=== PATIENT | female | born 1985 | race Caucasian/White ===

== ENCOUNTER 2017-06-15 18:44 | Emergency (ER) | payer MEDICAID ==
[~2017-06-15] VITALS: Ht 163.8 cm; Wt 89.4 kg
[~2017-06-15 18:44] MED LIST: ACET500C5 PO; ADV50050 INH; ALBU2.5V3 NEB; ALBU8.5H3 INH; DOXY100T20 PO; GUAI118L94 PO; GUAI473L22 PO; IBUP400T22 PO; IPRA12.93 INHALATION; Ipratropium 0.02% (Neb) HHN; TIOT18CA INH
[2017-06-15 18:56] VITALS: Ht 163.8 cm; Wt 89.4 kg
--- NOTE | 2017-06-15 19:54 | ERD ---
ER Documentation Chief Complaint Chief Complaint B flank pain going to the pelvic since last nite HPI 31-year-old female presents here in emergency department for complaints of bilateral flank pain radiating to the lower abdominal area that started last night. Patient's complaint of pain, sharp pain, succession scale, not better or worse with anything. Patient denies any hematuria or dysuria. Patient denies any vaginal bleeding. Patient denies any fever or chills ROS All systems reviewed and are negative except as per history of present illness. Medications Home Meds Active Scripts Doxycycline Hyclate* (Doxycycline Hyclate*) 100 Mg Tablet.dr, 100 MG PO BID for 3 Days, TAB Prov:CHARLEEN GARCIAP S. 06/15/16 Tiotropium Louisa* (Spiriva*) 18 Mcg Cap.w.dev, 1 INH INH DAILY for 30 Days, 9 Refills Prov:JOSECALVIN S. 06/15/16 Salmeterol Xinaf-Fluticasone* (Advair*) 500/50 Diskus Inhaler, 1 INH INH BID for 30 Days, #60 9 Refills Prov:CHARLEEN GARCIAP S. 06/15/16 [Ipratropium 0.02% (Neb)] 0.5 MG/2.5 ML NEBU No Conflict Check, 0.5 MG HHN Q4HWA RESP THERAPY for 30 Days, 9 Refills Prov:JULIO CÉSAR GARCIAEEP S. 06/15/16 Albuterol Sulfate* (Albuterol Sulfate* Neb) 0.083%-3 Ml Neb, 2.5 MG NEB Q4 Y for SHORTNESS OF BREATH, #30 EA 9 Refills Prov:CHARLEEN GARCIAP S. 06/15/16 Ipratropium Louisa* (Atrovent HFA*) 12.9 Gm Aer.w.adap, 2 PUFF INHALATION BID, #1 INHALER 9 Refills Prov:CHARLEEN GARCIAP S. 06/15/16 Albuterol Sulfate* (Proair HFA*) 8.5 Gm Hfa.aer.ad, 2 PUFF INH Q4, #1 INHALER 9 Refills Prov:JULIO CÉSAR GARCIAEEP S. 06/15/16 Acetaminophen* (Tylophen*) 500 Mg Capsule, 1 CAP PO Q6H Y for PAIN AND OR ELEVATED TEMP, #20 CAP Prov:JALEEL CH NP 06/03/16 Ibuprofen* (Motrin*) 400 Mg Tab, 400 MG PO Q6H Y for PAIN AND OR ELEVATED TEMP, #30 TAB Prov:JALEEL CH NP 06/03/16 Guaifenesin-Codeine Phosphate* (Guaifenesin* AC Cough Syrup) 473 Ml Liquid, 10 ML PO Q4H Y for COUGH, #120 ML Prov:JALEEL CH NP 06/03/16 Guaifenesin-Codeine Phosphate* (Guaifenesin* with Codeine Liq) 120 Ml Liquid, 5 ML PO Q4H for COUGH, #60 ML Prov:JALEEL CH NP 06/08/15 Allergies Allergies: Coded Allergies: No Known Allergies (Verified Allergy, Mild, 06/08/16) PMhx/Soc History of Surgery: Yes (,B Tubal Ligation) Anesthesia Reaction: No Hx Neurological Disorder: No Hx Respiratory Disorders: Yes (Asthma,TB) Hx Cardiac Disorders: No Hx Psychiatric Problems: No Hx Miscellaneous Medical Probl: Yes (Nephrolithiasis,Gallstones) Hx Alcohol Use: No Hx Substance Use: No Hx Tobacco Use: No Smoking Status: Never smoker FmHx Family History: No coronary disease, No diabetes, No other Physical Exam Vitals Vital Signs Date Time Temp Pulse Resp B/P Pulse Ox O2 Delivery O2 Flow Rate FiO2 06/15/17 18:56 98.3 67 18 146/78 100 Physical Exam GENERAL: The patient is well developed and appropriate for usual state of health, in no apparent distress. CHEST: Clear to auscultation bilaterally. There are no rales, wheezes or rhonchi. HEART: Regular rate and rhythm. No murmurs, clicks, rubs or gallops. No S3 or S4. ABDOMEN: Soft, nontender and nondistended. Good bowel sounds. No rebound or guarding. No gross peritonitis. No gross organomegaly or masses. No Almonte sign or McBurney point tenderness. BACK: No midline or flank tenderness. EXTREMITIES: Equal pulses bilaterally. There is no peripheral clubbing, cyanosis or edema. No focal swelling or erythema. Full range of motion. Grossly neurovascularly intact. NEURO: Alert and oriented. Cranial nerves 2-12 intact. Motor strength in all 4 extremities with 5/5 strength. Sensation grossly intact. Normal speech and gait. SKIN: There is no apparent rash or petechia. The skin is warm and dry. HEMATOLOGIC AND LYMPHATIC: There is no evidence of excessive bruising or lymphedema. No gross cervical, axillary, or inguinal lymphadenopathy. Result Diagram: 06/15/17202306/15/172023 Results 24 hrs Laboratory Tests Test 06/15/17 20:24 06/15/17 20:30 06/15/17 20:31 White Blood Count 6.210^3/ul Red Blood Count 5.0610^6/ul Hemoglobin 13.6g/dl Hematocrit 41.7% Mean Corpuscular Volume 82.4fl Mean Corpuscular Hemoglobin 26.9pg Mean Corpuscular Hemoglobin Concent 32.6g/dl Red Cell Distribution Width 13.4% Platelet Count 15072^3/UL Mean Platelet Volume 9.6fl Neutrophils % 63.0% Lymphocytes % 18.9% Monocytes % 7.8% Eosinophils % 9.5% Basophils % 0.6% Nucleated Red Blood Cells % 0.0/100WBC Neutrophils # 3.910^3/ul Lymphocytes # 1.210^3/ul Monocytes # 0.510^3/ul Eosinophils # 0.610^3/ul Basophils # 0.010^3/ul Nucleated Red Blood Cells # 0.010^3/ul Sodium Level 144mmol/L Potassium Level 3.4mmol/L Chloride Level 102mmol/L Carbon Dioxide Level 29mmol/L Anion Gap 16 Blood Urea Nitrogen 11mg/dl Creatinine 0.59mg/dl Glucose Level 103mg/dl Calcium Level 9.6mg/dl Total Bilirubin 0.2mg/dl Direct Bilirubin 0.00mg/dl Indirect Bilirubin 0.2mg/dl Aspartate Amino Transf (AST/SGOT) 20IU/L Alanine Aminotransferase (ALT/SGPT) 31IU/L Alkaline Phosphatase 117IU/L Total Protein 8.4g/dl Albumin 4.2g/dl Globulin 4.20g/dl Albumin/Globulin Ratio 1.00 Lipase 62U/L Urine Color YELLOW Urine Clarity CLEAR Urine pH 6.0 Urine Specific Williams 1.031 Urine Ketones NEGATIVEmg/dL Urine Nitrite NEGATIVEmg/dL Urine Bilirubin NEGATIVEmg/dL Urine Urobilinogen 1+mg/dL Urine Leukocyte Esterase NEGATIVELeu/ul Urine Hemoglobin NEGATIVEmg/dL Urine Glucose NEGATIVEmg/dL Urine Total Protein NEGATIVEmg/dl Bedside Urine pH (LAB) 6.5 Bedside Urine Protein (LAB) 1+ Bedside Urine Glucose (UA) Negative Bedside Urine Ketones (LAB) Trace Bedside Urine Blood Trace-lysed Bedside Urine Nitrite (LAB) Negative Bedside Urine Leukocyte Esterase (L Negative Current Medications Medications (Trade) Dose Ordered Sig/Radha Route PRN Reason Start Time Stop Time Status Last Admin Dose Admin Ondansetron HCl (Zofran Inj) 4 mg ONCE STAT IV 06/15/17 20:23 06/15/17 20:25 DC 06/15/17 20:35 Morphine Sulfate (morphine) 4 mg ONCE STAT IV 06/15/17 20:23 06/15/17 20:25 DC 06/15/17 20:35 Patient was given medication for pain here in emergency department, after treatment, patient verbalized feeling much better. Patient's pain is improved. Patient was given Zofran here in the emergency department. After treatment, patient was able to tolerate po fluids here in the emergency department without any vomiting. There is no signs and symptoms of dehydration. PROCEDURE: CT Abdomen and Pelvis without contrast. CLINICAL INDICATION: Abdominal pain TECHNIQUE: CT scan of the abdomen and pelvis without contrast was performed on a multidetector high-resolution CT scanner. The patient was scanned without intravenous contrast. Coronal and sagittal reformatted images were obtained from the axial source images. Images were reviewed on a high-resolution PACS workstation. The total exam CTDI equals 19.79 mGy and the total exam DLP equals 1062.6 mGy-cm. One or more the following dose reduction techniques were utilized: Automated exposure control, adjustment of the mA and / or kV according to patient's size, or use of iterative reconstruction technique. DICOM images are available. COMPARISON: None. FINDINGS: 2 small left lower pleural calcifications. Minimal linear atelectasis/fibrosis at lung bases. No pneumoperitoneum is seen. Cholecystectomy. Small calcified granuloma in the right lobe of liver. No abnormality seen in the spleen. Small hiatal hernia. Food material/debris and air is seen in the stomach. No biliary dilatation is seen. No abnormality seen in the pancreas, adrenals or kidneys. No renal or ureteral stone is seen. No abdominal aortic aneurysm is seen. No abnormality of the nearly empty bladder is seen. No definite abnormality of the uterus or left adnexal region is seen on CT. 2 cystic structures are seen in the right adnexal region the larger likely ovarian cyst measuring 3.6 x 4.2 x 3.7 cm and the smaller likely 2.6 cm follicle. There is a small amount of free fluid in the cul-de-sac. Diverticula in sigmoid, descending, transverse colon. There is no specific evidence of acute diverticulitis seen. There is an unremarkable appendix. No dilated small bowel loops are seen. No enlarged lymph nodes are seen in the abdomen or pelvis. Mild degenerative changes at sacroiliac joints. IMPRESSION: Small hiatal hernia. 2 cystic structures are seen in the right adnexal region the larger likely ovarian cyst measuring 3.6 x 4.2 x 3.7 cm and the smaller likely 2.6 cm follicle. There is a small amount of free fluid in the cul-de- sac. Colonic diverticulosis. No specific evidence of acute diverticulitis seen. Please see above. RPTAT: HJES .Joe Houston MD, MD Date Time Electronically viewed and signed by .Joe Houston MD, on 06/15/2017 21:16 .S/ PROCEDURE: Ultrasound of the pelvis. CLINICAL INDICATION: Pelvic pain. TECHNIQUE: Transabdominal and transvaginal ultrasound of the pelvis was performed utilizing Doppler flow imaging. COMPARISON: CT abdomen and pelvis 06/15/2017. FINDINGS: UTERUS: Size: 7.4 x 4.0 x 4.8 cm. The uterine texture is homogeneous. The endometrium measures 3.9 mm which is within normal limits. RIGHT OVARY: Size: 3.0 x 2.1 x 2.8 cm. To ovarian cysts are present. The largest cyst measures 3.9 x 3.1 x 4.6 cm. The second cyst measures 1.2 x 1.5cm. Normal Doppler flow is noted to the right ovary. LEFT OVARY: Size: 2.6 x 1.8 x 2.0 cm. No ovarian lesion or cyst is identified.Normal Doppler flow is noted to the left ovary. CUL-DE-SAC: There is no abnormal free fluid. IMPRESSION: 1. 2 cysts within the right ovary largest measuring 3.9 x 3.1 x 4.6 cm. 2. Unremarkable uterus and left ovary. RPTAT: HRSR Physician Marjan Date Time Electronically viewed and signed by Carol Rosado Physician on 06/15/2017 22 :51 RR/ CC: JALEEL CH TECHNICAL EDUCATION TEACHER Procedures/MDM Medical Decision Making: Patient symptoms was likely is consistent with the ovarian cyst noted in the ultrasound and CT scan. No symptoms of any ovarian torsion. There is low suspicion for abdominal emergencies at this time. Patient s abdominal exam is normal at this time. Patients radiology exam does not show any abdominal emergencies at this time. There is low suspicion for appendicitis, cholecystitis, abdominal aortic aneurysms or peritonitis at this time. There is low suspicion for sepsis. Patient appears well and is hemodynamically stable. Disposition: Home. Condition: Stable Prescription Percocet, ibuprofen, Zofran Instructions: Patient is advised to take medications as prescribed. Patient is advised to rest, increase fluid intake and do brat diet for next 1-2 days and progress as tolerated. Patient is advised that if symptoms are worse, severe abdominal pain, uncontrolled vomiting, high fever, severe flank pain, worst signs and symptoms, to return to the emergency department immediately. Otherwise, patient can follow up with primary care doctor in 5-7 days. Disclaimer: Inadvertent spelling and grammatical errors are likely due to EHR/ dictation software use and do not reflect on the overall quality of patient care. Also, please note that the electronic time recorded on this note does not necessarily reflect the actual time of the patient encounter. Departure Diagnosis: Primary Impression: Ovarian cyst Laterality: right Qualified Code: N83.201 - Cyst of right ovary Condition: Stable Patient Instructions: Ovarian Cyst Additional Instructions: Patient is advised to take medications as prescribed. Patient is advised to rest, increase fluid intake and do brat diet for next 1-2 days and progress as tolerated. Patient is advised that if symptoms are worse, severe abdominal pain , uncontrolled vomiting, high fever, severe flank pain, worst signs and symptoms , to return to the emergency department immediately. Otherwise, patient can follow up with primary care doctor in 5-7 days. JALEEL CH NP Jun 15, 2017 19:54
[2017-06-15] MEDS ORDERED: ONDANSETRON 4 MG INJ IV STA (20:23)
[2017-06-15] MEDS ORDERED: morphine 4 MG/ML VIAL IV STA (20:23)
[2017-06-15 20:30] LABS: URINE BLOOD (Dip) POC Trace-lysed (NEGATIVE)
[2017-06-15 20:37] LABS: BASOPHILS % 0.6 % (0.0-2.0); EOSINOPHILS # 0.6 10^3/ul (0.0-0.5); EOSINOPHILS % 9.5 % (0.0-7.0); HEMATOCRIT 41.7 % (37.0-47.0); HEMOGLOBIN 13.6 g/dl (12.0-16.0); LYMPHOCYTES # 1.2 10^3/ul (0.8-2.9); LYMPHOCYTES % 18.9 % (15.0-51.0); MEAN CORPUSCULAR HEMOGLOBIN 26.9 pg (29.0-33.0); MEAN CORPUSCULAR HGB CONC 32.6 g/dl (32.0-37.0); MEAN CORPUSCULAR VOLUME 82.4 fl (82.0-101.0); MEAN PLATELET VOLUME 9.6 fl (7.4-10.4); MONOCYTE # 0.5 10^3/ul (0.3-0.9); MONOCYTES % 7.8 % (0.0-11.0); NEUTROPHIL # 3.9 10^3/ul (1.6-7.5); PLATELET COUNT 339 10^3/UL (140-415); RED BLOOD COUNT 5.06 10^6/ul (4.20-5.40); RED CELL DISTRIBUTION WIDTH 13.4 % (11.5-14.5); WHITE BLOOD COUNT 6.2 10^3/ul (4.8-10.8)
[2017-06-15 20:58] LABS: ALBUMIN 4.2 g/dl (3.3-4.9); BILIRUBIN,INDIRECT 0.2 mg/dl (0-1.1); BILIRUBIN,TOTAL 0.2 mg/dl (0.2-1.3); CALCIUM 9.6 mg/dl (8.4-10.2); CREATININE 0.59 mg/dl (0.44-1.00); POTASSIUM 3.4 mmol/L (3.5-5.1); TOTAL PROTEIN 8.4 g/dl (6.1-8.1)
--- NOTE | 2017-06-15 21:16 | RADRPT ---
PROCEDURE: CT Abdomen and Pelvis without contrast. CLINICAL INDICATION: Abdominal pain TECHNIQUE: CT scan of the abdomen and pelvis without contrast was performed on a multidetector hig h-resolution CT scanner. The patient was scanned without intravenous contrast. Coronal and sagittal reformatted images were obtained from the axial source images. Images were reviewed on a high-resol [employer] PACS workstation. The total exam CTDI equals 19.79 mGy and the total exam DLP equals 1062.6 mG y-cm. One or more the following dose reduction techniques were utilized: Automated exposure control, adjus tment of the mA and / or kV according to patient's size, or use of iterative reconstruction techniqu e. DICOM images are available. COMPARISON: None. FINDINGS: 2 small left lower pleural calcifications. Minimal linear atelectasis/fibrosis at lung bases. No pne umoperitoneum is seen. Cholecystectomy. Small calcified granuloma in the right lobe of liver. No abn ormality seen in the spleen. Small hiatal hernia. Food material/debris and air is seen in the stomac h. No biliary dilatation is seen. No abnormality seen in the pancreas, adrenals or kidneys. No renal or ureteral stone is seen. No abdominal aortic aneurysm is seen. No abnormality of the nearly empty bladder is seen. No definite abnormality of the uterus or left adnexal region is seen on CT. 2 cyst ic structures are seen in the right adnexal region the larger likely ovarian cyst measuring 3.6 x 4. 2 x 3.7 cm and the smaller likely 2.6 cm follicle. There is a small amount of free fluid in the cul- de-sac. Diverticula in sigmoid, descending, transverse colon. There is no specific evidence of acute diverticulitis seen. There is an unremarkable appendix. No dilated small bowel loops are seen. No enlarged lymph nodes are seen in the abdomen or pelvis. Mild degenerative changes at sacroiliac join ts. IMPRESSION: Small hiatal hernia. 2 cystic structures are seen in the right adnexal region the larger likely ovar holly cyst measuring 3.6 x 4.2 x 3.7 cm and the smaller likely 2.6 cm follicle. There is a small amoun t of free fluid in the cul-de-sac. Colonic diverticulosis. No specific evidence of acute diverticul itis seen. Please see above. RPTAT: HJES .Joe Houston MD, MD Date Time Electronically viewed and signed by .Joe Houston MD, on 06/15/2017 21:16 .S/
[2017-06-15 21:28] LABS: ADD UMIC NO; UR ASCORBIC ACID NEGATIVE (NEGATIVE); UR BILIRUBIN (Dip) NEGATIVE (NEGATIVE); UR BLOOD (Dip) NEGATIVE (NEGATIVE); UR CLARITY CLEAR (CLEAR); UR COLOR YELLOW (YELLOW); UR GLUCOSE (Dip) NEGATIVE (NEGATIVE); UR KETONES (Dip) NEGATIVE (NEGATIVE); UR LEUKOCYTE ESTERASE (Dip) NEGATIVE Leu/ul (NEGATIVE); UR NITRITE (Dip) NEGATIVE (NEGATIVE); UR SPECIFIC GRAVITY (Dip) 1.031 (1.003-1.030); UR TOTAL PROTEIN (Dip) NEGATIVE (NEGATIVE); UR UROBILINOGEN (Dip) 1+ mg/dL (NEGATIVE)
--- NOTE | 2017-06-15 22:51 | RADRPT ---
PROCEDURE: Ultrasound of the pelvis. CLINICAL INDICATION: Pelvic pain. TECHNIQUE: Transabdominal and transvaginal ultrasound of the pelvis was performed utilizing Dopple r flow imaging. COMPARISON: CT abdomen and pelvis 06/15/2017. FINDINGS: UTERUS: Size: 7.4 x 4.0 x 4.8 cm. The uterine texture is homogeneous. The endometrium measures 3.9 mm which is within normal limits. RIGHT OVARY: Size: 3.0 x 2.1 x 2.8 cm. To ovarian cysts are present. The largest cyst measures 3.9 x 3.1 x 4.6 cm . The second cyst measures 1.2 x 1.5cm. Normal Doppler flow is noted to the right ovary. LEFT OVARY: Size: 2.6 x 1.8 x 2.0 cm. No ovarian lesion or cyst is identified.Normal Doppler flow is noted to th e left ovary. CUL-DE-SAC: There is no abnormal free fluid. IMPRESSION: 1. 2 cysts within the right ovary largest measuring 3.9 x 3.1 x 4.6 cm. 2. Unremarkable uterus and left ovary. RPTAT: HRSR Physician Marjan Date Time Electronically viewed and signed by Physician Marjan on 06/15/2017 22:51 RR/
[2017-06-15] MEDS ORDERED: ONDA4TAB14 PO (23:14)
[2017-06-15] MEDS ORDERED: IBUP-1542 PO (23:14)
[2017-06-15] MEDS ORDERED: OXYC-209 PO (23:14)
[2017-06-15] MEDS ORDERED: morphine 4 MG/ML VIAL IV ONE (23:16)
[2017-06-15] MEDS ORDERED: KETOROLAC 30 MG INJ IV ONE (23:16)
[2017-06-15 23:40] VITALS: BP 124/67; PULSE 69; RESP 16; TEMP 97.6
== END 2017-06-15 23:41 | disposition home or self-care (01) ==
LOC: FTE 18:44
DX: N83.201 Unspecified ovarian cyst, right side (principal); J45.909 Unspecified asthma, uncomplicated
CPT/HCPCS: 36415; 74176; 76830; 76856; 80053; 81003; 83690; 85025; 96374; 96375; 96376; J2270; J2405; Z7502

== ENCOUNTER 2017-06-22 15:52 | Emergency (ER) | END 2017-06-22 20:19 | disposition home or self-care (01) ==

== ENCOUNTER 2017-10-09 21:06 | Emergency (ER) | END 2017-10-10 01:20 | disposition home or self-care (01) ==

== ENCOUNTER 2018-01-27 18:27 | Emergency (ER) | END 2018-01-27 21:13 | disposition home or self-care (01) ==

== ENCOUNTER 2018-05-06 18:37 | Emergency (ER) | END 2018-05-06 22:05 | disposition home or self-care (01) ==

== ENCOUNTER 2018-09-25 22:58 | Emergency (ER) | payer MEDICAID ==
[~2018-09-25] VITALS: Ht 160 cm; Wt 95.5 kg
[~2018-09-25 22:58] MED LIST changes: +ADV25050 INHALATION; +ALBU18HF INHALATION; -ALBU8.5H3 INH; +ALBU8.5H8 INH; +ATRO INHALATION; +CETI10CA PO; +FLUT12HF IH; +FLUT12HF2 IH; +GUAI120S26 PO; +HYDR-4011 PO; +IBUP-1542 PO; +IBUP-1561 PO; -IBUP400T22 PO; -IPRA12.93 INHALATION; +ONDA4TAB14 PO; +OXYC-209 PO; +PRED20TA PO
[2018-09-25 23:15] VITALS: Ht 160 cm; Wt 95.5 kg
[2018-09-26] MEDS ORDERED: IPRATROPIUM (NEB) 0.5 MG/2.5 ML AMP NEB STA ×2 (00:38→01:36)
[2018-09-26] MEDS ORDERED: predniSONE 20 MG TAB PO STA (00:38)
[2018-09-26] MEDS ORDERED: ALBUTEROL 0.083% (NEB) 2.5 MG/3 ML AMP NEB STA ×2 (00:38→01:36)
[2018-09-26] MEDS ORDERED: ADV25050 INHALATION (00:49)
[2018-09-26] MEDS ORDERED: ALBU8.5H8 INH (00:49)
[2018-09-26] MEDS ORDERED: PRED20TA PO (00:49)
[2018-09-26] MEDS ORDERED: D-ME473S2 PO (00:50)
--- NOTE | 2018-09-26 00:58 | ERD ---
ER Documentation Chief Complaint Chief Complaint pt has asthma hx ran out of advair 3 days ago, has cough x 3 days HPI This is a 33-year-old female with a history of asthma who presents ED with complaints of asthma exacerbation that started earlier this evening. Patient has been having cough for the past 3 days and ran out of her Advair Diskus 3 days ago. Patient started developing shortness of breath with wheezing 3 hours prior to arrival in ED. Patient admits to cough with sputum production. Denies fever, chills, chest pain, nausea, vomiting, diarrhea, constipation, headache, neck pain and all other symptoms. Denies prior intubations for asthma attack. ROS All systems reviewed and are negative except as per history of present illness. Medications Home Meds Active Scripts Dextromethorphan Hb-Promethazine Hcl* (Promethazine DM* Syrup) 473 Ml Syrup, 5 ML PO Q6 PRN for COUGH for 5 Days, ML Prov:CHATO LOPEZ PA-C 09/26/18 Salmeterol Xinaf/Fluticasone* (Advair*) 250-50 Diskus Inhaler, 1 INH INHALATION BID, #1 INHALER Prov:CHATO LOPEZ PA-C 09/26/18 Prednisone* (Prednisone*) 20 Mg Tab, 60 MG PO DAILY for 4 Days, TAB Prov:CHATO LOPEZ PA-C 09/26/18 Albuterol Sulfate* (Proair HFA*) 8.5 Gm Hfa.aer.ad, 2 PUFF INH Q4, #1 INHALER Prov:CHATO LOPEZ PA-C 09/26/18 Salmeterol Xinaf/Fluticasone* (Advair*) 250-50 Diskus Inhaler, 1 INH INHALATION BID, #1 INHALER Prov:BELTRAN LÓPEZ MD 05/06/18 Albuterol Sulfate* (Ventolin HFA*) 18 Gm Hfa.aer.ad, 2 PUFF INHALATION Q4H, #1 INHALER Prov:BELTRAN LÓPEZ MD 05/06/18 Prednisone* (Prednisone*) 20 Mg Tab, 60 MG PO DAILY for 5 Days, TAB Prov:BELTRAN LÓPEZ MD 05/06/18 Prednisone* (Prednisone*) 20 Mg Tab, 40 MG PO DAILY for 4 Days, TAB Prov:ROXANA GRIDER PA-C 01/27/18 Albuterol Sulfate* (Ventolin HFA*) 18 Gm Hfa.aer.ad, 2 PUFF INHALATION Q4H, #1 INHALER Prov:ROXANA GRIDER PA-C 01/27/18 Salmeterol Xinaf-Fluticasone* (Advair HFA*) 45 Aerosol Inhaler, 2 INH IH BID, #1 INHALER Prov:ROXANA GRIDER PA-C 01/27/18 Hydrocodone/Acetaminophen ([place] 5-325 Tablet) 1 Each Tablet, 1 TAB PO Q6H PRN for SEVERE PAIN LEVEL 7-10, #20 TAB Prov:JALEEL CH NP 10/10/17 Cetirizine Hcl* (Zyrtec*) 10 Mg Capsule, 10 MG PO DAILY, #30 TAB.CHEW Prov:JALEEL CH NP 10/10/17 Uzkkqjwuphy-R-Qdfcvrtfcn Hb* (Guaifenesin* DM Syrup) 120 Ml Syrup, 10 ML PO Q4H PRN for COUGH, #120 ML Prov:JALEEL CH NP 10/10/17 Prednisone* (Prednisone*) 20 Mg Tab, 60 MG PO DAILY for 5 Days, TAB Prov:JALEEL CH NP 10/10/17 Salmeterol Xinaf-Fluticasone* (Advair HFA*) Aerosol Inhaler, 2 INH IH BID, #1 INHALER Prov:JALEEL CH NP 10/10/17 Albuterol Sulfate* (Proair HFA*) 8.5 Gm Hfa.aer.ad, 2 PUFF INH Q4H PRN for WHEEZING AND SOB, #1 INHALER Prov:JALEEL CH NP 10/10/17 Salmeterol Xinaf-Fluticasone* (Advair HFA*) 115/21 Aerosol Inhaler, 2 INH IH BID, #1 INHALER Prov:GENO GOEL MD 06/22/17 Albuterol Sulfate* (Proair HFA*) 8.5 Gm Hfa.aer.ad, 2 PUFF INH Q4, #1 INHALER Prov:GENO GOEL MD 06/22/17 Prednisone* (Prednisone*) 20 Mg Tab, 60 MG PO DAILY for 5 Days, TAB Prov:GENO GOEL MD 06/22/17 Ondansetron (Ondansetron Odt) 4 Mg Tab.rapdis, 4 MG PO Q6H PRN for NAUSEA AND/OR VOMITING, #20 TAB Prov:JALEEL CH NP 06/15/17 Ibuprofen* (Motrin*) 600 Mg Tab, 600 MG PO Q6H PRN for PAIN AND OR ELEVATED TEMP, #30 TAB Prov:JALEEL CH NP 06/15/17 Oxycodone HCl/Acetaminophen (Percocet 10-325 mg Tablet) 1 Each Tablet, 1 EACH PO Q6, #20 TAB Prov:JALEEL CH NP 06/15/17 Doxycycline Hyclate* (Doxycycline Hyclate*) 100 Mg Tablet.dr, 100 MG PO BID for 3 Days, TAB Prov:CALVIN GARCIA S. 06/15/16 Tiotropium [place]* (Spiriva*) 18 Mcg Cap.w.dev, 1 INH INH DAILY for 30 Days, 9 Refills Prov:CALVIN GARCIA S. 06/15/16 Salmeterol Xinaf-Fluticasone* (Advair*) 500/50 Diskus Inhaler, 1 INH INH BID for 30 Days, #60 9 Refills Prov:CALVIN GARCIA S. 06/15/16 [Ipratropium 0.02% (Neb)] 0.5 MG/2.5 ML NEBU No Conflict Check, 0.5 MG HHN Q4HWA RESP THERAPY for 30 Days, 9 Refills Prov:CALVIN GARCIA S. 06/15/16 Albuterol Sulfate* (Albuterol Sulfate* Neb) 0.083%-3 Ml Neb, 2.5 MG NEB Q4 PRN for SHORTNESS OF BREATH, #30 EA 9 Refills Prov:CALVIN GARCIA S. 06/15/16 Ipratropium [place]* (Atrovent HFA*) 12.9 Gm Aer.w.adap, 2 PUFF INHALATION BID, #1 INHALER 9 Refills Prov:CALVIN GARCIA S. 06/15/16 Albuterol Sulfate* (Proair HFA*) 8.5 Gm Hfa.aer.ad, 2 PUFF INH Q4, #1 INHALER 9 Refills Prov:CALVIN GARCIA S. 06/15/16 Acetaminophen* (Tylophen*) 500 Mg Capsule, 1 CAP PO Q6H PRN for PAIN AND OR ELEVATED TEMP, #20 CAP Prov:JALEEL CH NP 06/03/16 Ibuprofen* (Motrin*) 400 Mg Tab, 400 MG PO Q6H PRN for PAIN AND OR ELEVATED TEMP, #30 TAB Prov:JALEEL CH NP 06/03/16 Guaifenesin-Codeine Phosphate* (Guaifenesin* AC Cough Syrup) 473 Ml Liquid, 10 ML PO Q4H PRN for COUGH, #120 ML Prov:JALEEL CH NP 06/03/16 Guaifenesin-Codeine Phosphate* (Guaifenesin* with Codeine Liq) 120 Ml Liquid, 5 ML PO Q4H for COUGH, #60 ML Prov:JALEEL CH NP 06/08/15 Allergies Allergies: Coded Allergies: No Known Allergies (Verified Allergy, Mild, 06/08/16) PMhx/Soc History of Surgery: Yes (, B Tubal Ligation) Anesthesia Reaction: No Hx Neurological Disorder: No Hx Respiratory Disorders: Yes (Asthma,TB) Hx Cardiac Disorders: No Hx Psychiatric Problems: No Hx Miscellaneous Medical Probl: Yes (Nephrolithiasis, Gallstones) Hx Alcohol Use: No Hx Substance Use: No Hx Tobacco Use: No Smoking Status: Never smoker FmHx Family History: No diabetes Physical Exam Vitals Vital Signs Date Temp Pulse Resp B/P (MAP) Pulse Ox O2 O2 Flow FiO2 Time Delivery Rate 09/26/18 82 20 95 21 01:05 09/25/18 98.3 87 24 130/53 95 23:15 (78) Physical Exam Physical Exam Vitals signs: Reviewed by me. General: Well developed, well nourished, in no acute distress. Patient is awake and alert. Head: Normocephalic, atraumatic. Eyes: Normal conjunctiva, Pupils PERRLA, EOM intact grossly ENT: Pharynx is clear, Moist mucous membranes, external ears, nose and mouth normal Neck: Supple, no masses, lymphadenopathy or JVD Respiratory: Expiratory wheezing heard throughout all lung colvin, no rales, no labored breathing, no retractions, no respiratory distress Cardiovascular: RRR, no murmurs, rubs, or gallops Neurologic: Alert and oriented, moving all extremities, normal speech, no focal weakness, no cerebellar signs. Normal mentation Skin: warm and dry, No rash Psych: Normal mood Results 24 hrs Current Medications Medications Dose Sig/Radha Start Time Status Last (Trade) Ordered Route PRN Stop Time Admin Dose Reason Admin Albuterol 5 mg ONCE STAT 09/26/18 DC 09/26/18 (Proventil NEB 00:38 09/26/18 01:05 0.083% (Neb)) 00:39 Ipratropium 0.5 mg ONCE STAT 09/26/18 DC 09/26/18 [place] NEB 00:38 09/26/18 01:05 (Atrovent 00:39 0.02% (Neb)) Prednisone 60 mg ONCE STAT 09/26/18 DC 09/26/18 (Prednisone) PO 00:38 09/26/18 01:12 00:40 Albuterol 5 mg ONCE STAT 09/26/18 DC (Proventil NEB 01:36 09/26/18 0.083% (Neb)) 01:38 Ipratropium 0.5 mg ONCE STAT 09/26/18 DC [place] NEB 01:36 09/26/18 (Atrovent 01:38 0.02% (Neb)) Procedures/MDM ER COURSE: The patient was stable throughout ED course. I kept the patient and/or family informed of laboratory and diagnostic imaging results throughout the emergency room course. The patient was promptly evaluated and a treatment plan was devised based on H&P and other data. This plan was discussed with the patient who agreed and had no further questions or concerns prior to discharge. MEDICAL DECISION MAKING: This is a 33-year-old female with a history of asthma presents ED with acute asthma exacerbation. Patient has been having cough for the past few days but ran out of Advair and started having shortness of breath and wheezing this evening. This is likely an acute bronchitis that developed into an an asthma attack. Physical examination was remarkable for some mild distress with some posterior wheezing heard. No retractions on physical examination. After the patient was given albuterol/ipratropium breathing treatment and IM Solu-Medrol patient lung sounds have improved. Patient was receiving a second breathing treatment in the emergency department. I am leaving for end of shift at 2:00 AM so patient will be signed out to my overseeing physician Dr. Sims. I anticipate patient will be a good candidate for close outpatient follow-up.. History and physical examination other data not consistent with emergent processes including status asthmaticus, pneumonia, pneumothorax, pleural effusion and other emergencies. There are no emergent life-threatening pathologies at time of discharge. Vitals are stable and patient is appropriate for outpatient management. Advised patient that he needs to follow-up with his primary care in the next 48 hours. Advised to return to ED with any worsening symptoms. DISPOSITION PLAN: We discussed follow up with the patient's primary care doctor within 24 to 48 hours. Patient counseled regarding my diagnostic impression and care plan. Prior to discharge all questions answered. Pt agrees with treatment plan and understands strict return precautions. Precautionary instructions provided including instructions to return to the ER if not improving or for any worsening or changing symptoms or concerns. ExitCare instructions provided. Prior to discharge, patients vital signs have been reviewed SPECIALIST FOLLOW UP RECOMMENDED: None Patient has been advised to follow up with primary care in 1-2 days. Disclaimer: Inadvertent spelling and grammatical errors are likely due to EHR/dictation software use and do not reflect on the overall quality of patient care. Also, please note that the electronic time recorded on this note does not necessarily reflect the actual time of the patient encounter. Departure Diagnosis: Primary Impression: Asthma with acute exacerbation Asthma severity: unspecified severity Asthma persistence: unspecified Qualified Codes: J45.901 - Unspecified asthma with (acute) exacerbation Additional Impression: Acute bronchitis Bronchitis organism: unspecified organism Qualified Codes: J20.9 - Acute bronchitis, unspecified Condition: Stable Patient Instructions: Acute Bronchitis, Asthma, Acute (Adult) Additional Instructions: Patient advised to return to the ED immediately for new or worsening symptoms. Patient advised to follow up with primary care provider in the next 24-48 hours. Patient verbalized understanding and agrees with treatment plan and course of action. If patient has no primary care they may follow up with one of the community clinics listed on the following page or one of the options listed below [facility] [address] [place] [address] or [facility] [address] [place] [address] or [facility] [address] [place] [address] CHATO LOPEZ PA-C Sep 26, 2018 00:58
[2018-09-26] MEDS ORDERED: METHYLPREDNISOLONE 125 MG INJ IM ONE (03:00)
[2018-09-26 03:45] VITALS: BP 121/65; PULSE 85; RESP 17
== END 2018-09-26 03:45 | disposition home or self-care (01) ==
LOC: FTE 22:58
DX: J45.901 Unspecified asthma with (acute) exacerbation (principal); J20.9 Acute bronchitis, unspecified
CPT/HCPCS: 94640; 94664; 96372; J2930; J7512; Z7502; Z7610

== ENCOUNTER 2018-12-05 18:13 | Emergency (ER) | payer MEDICAID ==
[~2018-12-05] VITALS: Ht 162.6 cm; Wt 94.1 kg
[~2018-12-05 18:13] MED LIST changes: +D-ME473S2 PO; +GUAI120S25 PO; -GUAI120S26 PO
[2018-12-05 18:29] VITALS: Ht 162.6 cm; Wt 94.1 kg
[2018-12-05] MEDS ORDERED: ALBUTEROL 0.083% (NEB) 2.5 MG/3 ML AMP HHN STA (20:17)
--- NOTE | 2018-12-05 20:20 | ERD ---
ER Documentation Chief Complaint Chief Complaint PT REPORTS SOB TODAY HX ASTHMA HPI This is a 33-year-old female presents the emergency department with complaints of shortness of breath, cough, wheezing for today. Stated that she has history of asthma. Stated that she takes Advair and pro-air. Stated that she needs treatment. LMP: Stated that he started yesterday. G4, . Denies headache, head injury, loss of consciousness, dizziness, neck pain, neck stiffness, throat pain, difficulty swallowing, difficulty breathing lying flat, shoulder pain, chest pain, back pain, abdominal pain, nausea, vomiting, constipation, diarrhea, urinary symptoms, or possibility being , loss of bowel and bladder control, trauma, injury, falls, difficulty walking due to pain, numbness or tingling sensation, calf pain, recent travel, recent major surgery in the last 3 weeks, calf pain, recent long travel, recent exposure to any illness, recent antibiotic use in the last 3 months, fever, chills, seizures. Past medical history: Asthma. Medication: Advair. Pro-air. Surgical history: x4. Social: Denies smoking, use of alcoholic beverages, use of illegal drugs. ROS All systems reviewed and are negative except as per history of present illness. Medications Home Meds Active Scripts Benzonatate* (Tessalon Perle*) 100 Mg Capsule, 100 MG PO Q8H PRN for COUGH, #15 CAP Prov:STEPHANIE GUY F 12/05/18 Salmeterol Xinaf/Fluticasone* (Advair*) 250-50 Diskus Inhaler, 1 INH INHALATION BID, #1 INHALER Prov:STEPHANIE GUY 12/05/18 Albuterol Sulfate* (Proair HFA*) 8.5 Gm Hfa.aer.ad, 2 PUFF INH Q4 PRN for WHEEZING, #1 INHALER Prov:PASSTEPHANIE KHAN 12/05/18 Prednisone* (Prednisone*) 20 Mg Tab, 40 MG PO DAILY for 4 Days, TAB Prov:PASILASTEPHANIE CARRERA F 12/05/18 Dextromethorphan Hb-Promethazine Hcl* (Promethazine DM* Syrup) 473 Ml Syrup, 5 ML PO Q6 PRN for COUGH for 5 Days, ML Prov:CHATO LOPEZ PA-C 09/26/18 Salmeterol Xinaf/Fluticasone* (Advair*) 250-50 Diskus Inhaler, 1 INH INHALATION BID, #1 INHALER Prov:CHATO LOPEZ PA-C 09/26/18 Prednisone* (Prednisone*) 20 Mg Tab, 60 MG PO DAILY for 4 Days, TAB Prov:CHATO LOPEZ PA-C 09/26/18 Albuterol Sulfate* (Proair HFA*) 8.5 Gm Hfa.aer.ad, 2 PUFF INH Q4, #1 INHALER Prov:CHATO LOPEZ PA-C 09/26/18 Salmeterol Xinaf/Fluticasone* (Advair*) 250-50 Diskus Inhaler, 1 INH INHALATION BID, #1 INHALER Prov:BELTRAN LÓPEZ MD 05/06/18 Albuterol Sulfate* (Ventolin HFA*) 18 Gm Hfa.aer.ad, 2 PUFF INHALATION Q4H, #1 INHALER Prov:BELTRAN LÓPEZ MD 05/06/18 Prednisone* (Prednisone*) 20 Mg Tab, 60 MG PO DAILY for 5 Days, TAB Prov:BELTRAN LÓPEZ MD 05/06/18 Prednisone* (Prednisone*) 20 Mg Tab, 40 MG PO DAILY for 4 Days, TAB Prov:ROXANA GRIDER PA-C 01/27/18 Albuterol Sulfate* (Ventolin HFA*) 18 Gm Hfa.aer.ad, 2 PUFF INHALATION Q4H, #1 INHALER Prov:ROXANA GRIDER PA-C 01/27/18 Salmeterol Xinaf-Fluticasone* (Advair HFA*) 45/212 Aerosol Inhaler, 2 INH IH BID, #1 INHALER Prov:ROXANA GRIDER PA-C 01/27/18 Hydrocodone/Acetaminophen ([place] 5-325 Tablet) 1 Each Tablet, 1 TAB PO Q6H PRN for SEVERE PAIN LEVEL 7-10, #20 TAB Prov:JALEEL CH NP 10/10/17 Cetirizine Hcl* (Zyrtec*) 10 Mg Capsule, 10 MG PO DAILY, #30 TAB.CHEW Prov:JALEEL CH NP 10/10/17 Ybjofknrxuo-Y-[place] Hb* (Guaifenesin* DM Syrup) 120 Ml Syrup, 10 ML PO Q4H PRN for COUGH, #120 ML Prov:JALEEL CH NP 10/10/17 Prednisone* (Prednisone*) 20 Mg Tab, 60 MG PO DAILY for 5 Days, TAB Prov:JLAEEL CH NP 10/10/17 Salmeterol Xinaf-Fluticasone* (Advair HFA*) 45/212 Aerosol Inhaler, 2 INH IH BID, #1 INHALER Prov:JALEEL CH NP 10/10/17 Albuterol Sulfate* (Proair HFA*) 8.5 Gm Hfa.aer.ad, 2 PUFF INH Q4H PRN for WHEEZING AND SOB, #1 INHALER Prov:JALEEL CH NP 10/10/17 Salmeterol Xinaf-Fluticasone* (Advair HFA*) 115/21 Aerosol Inhaler, 2 INH IH BID, #1 INHALER Prov:GENO GOEL MD 06/22/17 Albuterol Sulfate* (Proair HFA*) 8.5 Gm Hfa.aer.ad, 2 PUFF INH Q4, #1 INHALER Prov:GENO GOEL MD 06/22/17 Prednisone* (Prednisone*) 20 Mg Tab, 60 MG PO DAILY for 5 Days, TAB Prov:GENO GOEL MD 06/22/17 Ondansetron (Ondansetron Odt) 4 Mg Tab.rapdis, 4 MG PO Q6H PRN for NAUSEA AND/OR VOMITING, #20 TAB Prov:JALEEL CH NP 06/15/17 Ibuprofen* (Motrin*) 600 Mg Tab, 600 MG PO Q6H PRN for PAIN AND OR ELEVATED T EMP, #30 TAB Prov:JALEEL CH NP 06/15/17 Oxycodone HCl/Acetaminophen (Percocet 10-325 mg Tablet) 1 Each Tablet, 1 EACH PO Q6, #20 TAB Prov:JALEEL CH NP 06/15/17 Doxycycline Hyclate* (Doxycycline Hyclate*) 100 Mg Tablet.dr, 100 MG PO BID for 3 Days, TAB Prov:CALVIN GARCIA S. 06/15/16 Tiotropium [place]* (Spiriva*) 18 Mcg Cap.w.dev, 1 INH INH DAILY for 30 Days, 9 Refills Prov:CALVIN GARCIA S. 06/15/16 Salmeterol Xinaf-Fluticasone* (Advair*) 500/50 Diskus Inhaler, 1 INH INH BID for 30 Days, #60 9 Refills Prov:CALVIN GARCIA S. 06/15/16 [Ipratropium 0.02% (Neb)] 0.5 MG/2.5 ML NEBU No Conflict Check, 0.5 MG HHN Q4HWA RESP THERAPY for 30 Days, 9 Refills Prov:CALVIN GARCIA S. 06/15/16 Albuterol Sulfate* (Albuterol Sulfate* Neb) 0.083%-3 Ml Neb, 2.5 MG NEB Q4 PRN for SHORTNESS OF BREATH, #30 EA 9 Refills Prov:CALVIN GARCIA S. 06/15/16 Ipratropium [place]* (Atrovent HFA*) 12.9 Gm Aer.w.adap, 2 PUFF INHALATION BID, #1 INHALER 9 Refills Prov:CALVIN GARCIA S. 06/15/16 Albuterol Sulfate* (Proair HFA*) 8.5 Gm Hfa.aer.ad, 2 PUFF INH Q4, #1 INHALER 9 Refills Prov:CALVIN GARCIA S. 06/15/16 Acetaminophen* (Tylophen*) 500 Mg Capsule, 1 CAP PO Q6H PRN for PAIN AND OR E LEVATED TEMP, #20 CAP Prov:JALEEL CH NP 06/03/16 Ibuprofen* (Motrin*) 400 Mg Tab, 400 MG PO Q6H PRN for PAIN AND OR ELEVATED TEMP, #30 TAB Prov:JALEEL CH NP 06/03/16 Guaifenesin-Codeine Phosphate* (Guaifenesin* AC Cough Syrup) 473 Ml Liquid, 10 ML PO Q4H PRN for COUGH, #120 ML Prov:JALEEL CH NP 06/03/16 Guaifenesin-Codeine Phosphate* (Guaifenesin* with Codeine Liq) 120 Ml Liquid, 5 ML PO Q4H for COUGH, #60 ML Prov:JALEEL CH NP 06/08/15 Allergies Allergies: Coded Allergies: No Known Allergies (Verified Allergy, Mild, 06/08/16) PMhx/Soc History of Surgery: Yes (, B Tubal Ligation) Anesthesia Reaction: No Hx Neurological Disorder: No Hx Respiratory Disorders: Yes (Asthma,TB) Hx Cardiac Disorders: No Hx Psychiatric Problems: No Hx Miscellaneous Medical Probl: Yes (Nephrolithiasis, Gallstones) Hx Alcohol Use: No Hx Substance Use: No Hx Tobacco Use: No Smoking Status: Never smoker Physical Exam Vitals Vital Signs Date Temp Pulse Resp B/P (MAP) Pulse Ox O2 O2 Flow FiO2 Time Delivery Rate 12/05/18 97.7 69 12 107/67 99 Room Air 22:01 (80) 12/05/18 70 22 97 21 20:47 12/05/18 97.7 86 20 148/73 98 18:29 (98) Physical Exam Head: Atraumatic Eyes: Normal Conjunctiva ENT: Normal External Ears, Nose and Mouth. Bilateral ears: TMs are not erythematous. No bleeding. No discharge. No hearing loss. No mastoid tenderness. Nose: There is no frontal or maxillary sinus tenderness palpation. Throat: Uvula is in midline and nondisplaced. Tonsils are +1 bilaterally without redness and without exudates. Tolerating secretions. Patent airway. S peaks full and clear sentences. No tripoding. Neck: Full range of motion. No meningismus. No nuchal rigidity. No signs of meningeal irritation. Resp: Wheezing bilaterally. No accessory muscle use in breathing. Cardio: Regular rate and rhythm, no murmurs Abd: Soft, non tender, non distended. Normal bowel sounds. Negative Almonte sign. Skin: No petechiae or rashes. Color appears normal for ethnicity. No skin tenting. No signs of severe dehydration. Back: No midline or flank tenderness Ext: No cyanosis, or edema Neur: Awake and alert. No neurological deficits. Psych: Normal Mood and Affect Results 24 hrs Current Medications Medications Dose Sig/Radha Start Time Status Last (Trade) Ordered Route PRN Stop Time Admin Dose Reason Admin 125 mg ONCE ONCE 12/05/18 DC 12/05/18 Methylprednis IM 20:30 20:31 olone Sodium 12/05/18 20:31 Succinate (Solu-Medrol) Albuterol 5 mg ONCE STAT 12/05/18 DC 12/05/18 (Proventil HHN 20:17 20:45 0.083% (Neb)) 12/05/18 20:19 Ipratropium 0.5 mg ONCE ONCE 12/05/18 DC 12/05/18 [place] HHN 20:30 20:46 (Atrovent 12/05/18 20:31 0.02% (Neb)) 10 ml ONCE ONCE 12/05/18 DC 12/05/18 Guaifenesin/ PO 20:30 21:29 Codeine 12/05/18 20:31 Phosphate (Robitussin Ac Liquid Cup) Procedures/MDM Diagnostic tests: Clinical exam. Treatment: Solu-Medrol IM. Albuterol and Atrovent breathing treatment. Re-evaluation: No accessory muscle use in breathing. No tripoding. Speaks full and clear sentences. Lung sounds are clear to auscultation. Stated that she feels much better at this time and that she is ready to go home. Patient and family member stated that they are comfortable going home. Differential diagnosis I have low suspicion for sepsis, airway obstruction, peritonsillar abscess, bronchospasm, pneumonia, severe dehydration. Final diagnosis: Asthma exacerbation. Asthmatic bronchitis. Prescription: Prednisone. Advair. Pro-air. Tessalon Perles. Follow-up with PCP in the next 24-48 hours. Come back here in the emergency department for any new symptoms or any worsening symptoms. All questions and concerns were answered. Patient and family members verbalized understanding and agreed with plan of care. Hemodynamically stable on discharge. Departure Diagnosis: Primary Impression: Asthma with acute exacerbation Condition: Stable Additional Instructions: Follow-up with PCP in the next 24-48 hours. Come back here in the emergency department for any new symptoms or any worsening symptoms. STEPHANIE GUY Dec 05, 2018 20:20
[2018-12-05] MEDS ORDERED: PRED20TA PO (20:21)
[2018-12-05] MEDS ORDERED: ALBU8.5H8 INH (20:22)
[2018-12-05] MEDS ORDERED: ADV25050 INHALATION (20:22)
[2018-12-05] MEDS ORDERED: BENZ-6 PO (20:22)
[2018-12-05] MEDS ORDERED: GUAIFENESIN/CODEINE 5ML CUP PO ONE (20:30)
[2018-12-05] MEDS ORDERED: IPRATROPIUM (NEB) 0.5 MG/2.5 ML AMP HHN ONE (20:30)
[2018-12-05] MEDS ORDERED: METHYLPREDNISOLONE 125 MG INJ IM ONE (20:30)
[2018-12-05 22:01] VITALS: BP 107/67; PULSE 69; RESP 12
== END 2018-12-05 22:02 | disposition home or self-care (01) ==
LOC: FTE 18:13
DX: J45.901 Unspecified asthma with (acute) exacerbation (principal)
CPT/HCPCS: 94664; 96372; J2930; Z7502; Z7610

== ENCOUNTER 2018-12-27 15:54 | Emergency (ER) | payer MEDICAID ==
[~2018-12-27] VITALS: Ht 160 cm; Wt 94.1 kg
[~2018-12-27 15:54] MED LIST changes: +BENZ-6 PO
[2018-12-27 15:59] VITALS: Ht 160 cm; Wt 94.1 kg
[2018-12-27] MEDS ORDERED: IPRATROPIUM (NEB) 0.5 MG/2.5 ML AMP NEB STA (17:29)
[2018-12-27] MEDS ORDERED: predniSONE 20 MG TAB PO STA (17:29)
[2018-12-27] MEDS ORDERED: ALBUTEROL 0.083% (NEB) 2.5 MG/3 ML AMP NEB STA (17:29)
--- NOTE | 2018-12-27 17:32 | ERD ---
ER Documentation Chief Complaint Chief Complaint SOB, cough worsening x3d; mild relief w advair. hx of asthma HPI 33-year-old female, with history of asthma, presents to the emergency depar tment, complaining of worsening of cough and wheezing during the last 3 days. The patient run out of Advair and pro-air. Otherwise, the patient denies fever, chills. ROS All systems reviewed and are negative except as per history of present illness. Medications Home Meds Active Scripts Prednisone* (Prednisone*) 20 Mg Tab, 40 MG PO DAILY for 4 Days, TAB Prov:KATHARINE GARCIA MD 12/27/18 Albuterol Sulfate* (Proair HFA*) 8.5 Gm Hfa.aer.ad, 2 PUFF INH Q4H PRN for WHEEZING AND SOB, #1 INHALER Prov:KATHARINE GARCIA MD 12/27/18 Salmeterol Xinaf-Fluticasone* (Advair HFA*) 230/12 Aerosol Inhaler, 2 INH IH BID, #1 INHALER Prov:KATHARINE GARCIA MD 12/27/18 Benzonatate* (Tessalon Perle*) 100 Mg Capsule, 100 MG PO Q8H PRN for COUGH, #15 CAP Prov:STEPHANIE GUY 12/05/18 Salmeterol Xinaf/Fluticasone* (Advair*) 250-50 Diskus Inhaler, 1 INH INHALATION BID, #1 INHALER Prov:STEPHANIE GUY 12/05/18 Albuterol Sulfate* (Proair HFA*) 8.5 Gm Hfa.aer.ad, 2 PUFF INH Q4 PRN for WHEEZING, #1 INHALER Prov:STEPHANIE GUY 12/05/18 Prednisone* (Prednisone*) 20 Mg Tab, 40 MG PO DAILY for 4 Days, TAB Prov:STEPHANIE GUY 12/05/18 Dextromethorphan Hb-Promethazine Hcl* (Promethazine DM* Syrup) 473 Ml Syrup, 5 ML PO Q6 PRN for COUGH for 5 Days, ML Prov:CHATO LOPEZ PA-C 09/26/18 Salmeterol Xinaf/Fluticasone* (Advair*) 250-50 Diskus Inhaler, 1 INH INHALATION BID, #1 INHALER Prov:CHATO LOPEZ PA-C 09/26/18 Prednisone* (Prednisone*) 20 Mg Tab, 60 MG PO DAILY for 4 Days, TAB Prov:CHATO LOPEZ PA-C 09/26/18 Albuterol Sulfate* (Proair HFA*) 8.5 Gm Hfa.aer.ad, 2 PUFF INH Q4, #1 INHALER Prov:CHATO LOPEZ PA-C 09/26/18 Salmeterol Xinaf/Fluticasone* (Advair*) 250-50 Diskus Inhaler, 1 INH INHALATION BID, #1 INHALER Prov:BELTRAN LÓPEZ MD 05/06/18 Albuterol Sulfate* (Ventolin HFA*) 18 Gm Hfa.aer.ad, 2 PUFF INHALATION Q4H, #1 INHALER Prov:BELTRAN LÓPEZ MD 05/06/18 Prednisone* (Prednisone*) 20 Mg Tab, 60 MG PO DAILY for 5 Days, TAB Prov:BELTRAN LÓPEZ MD 05/06/18 Prednisone* (Prednisone*) 20 Mg Tab, 40 MG PO DAILY for 4 Days, TAB Prov:ROXANA GRIDER PA-C 01/27/18 Albuterol Sulfate* (Ventolin HFA*) 18 Gm Hfa.aer.ad, 2 PUFF INHALATION Q4H, #1 INHALER Prov:ROXANA GRIDER PA-C 01/27/18 Salmeterol Xinaf-Fluticasone* (Advair HFA*) 45/212 Aerosol Inhaler, 2 INH IH BID, #1 INHALER Prov:ROXANA GRIDER PA-C 01/27/18 Hydrocodone/Acetaminophen ([place] 5-325 Tablet) 1 Each Tablet, 1 TAB PO Q6H PRN for SEVERE PAIN LEVEL 7-10, #20 TAB Prov:JALEEL CH NP 10/10/17 Cetirizine Hcl* (Zyrtec*) 10 Mg Capsule, 10 MG PO DAILY, #30 TAB.CHEW Prov:JALEEL CH NP 10/10/17 Jdhygmspnqo-D-Wlhfdkuqiw Hb* (Guaifenesin* DM Syrup) 120 Ml Syrup, 10 ML PO Q4H PRN for COUGH, #120 ML Prov:JALEEL CH NP 10/10/17 Prednisone* (Prednisone*) 20 Mg Tab, 60 MG PO DAILY for 5 Days, TAB Prov:JALEEL CH NP 10/10/17 Salmeterol Xinaf-Fluticasone* (Advair HFA*) 45/212 Aerosol Inhaler, 2 INH IH BID, #1 INHALER Prov:JALEEL CH NP 10/10/17 Albuterol Sulfate* (Proair HFA*) 8.5 Gm Hfa.aer.ad, 2 PUFF INH Q4H PRN for WHEEZING AND SOB, #1 INHALER Prov:JALEEL CH NP 10/10/17 Salmeterol Xinaf-Fluticasone* (Advair HFA*) 115/21 Aerosol Inhaler, 2 INH IH BID, #1 INHALER Prov:GENO GOEL MD 06/22/17 Albuterol Sulfate* (Proair HFA*) 8.5 Gm Hfa.aer.ad, 2 PUFF INH Q4, #1 INHALER Prov:GENO GOEL MD 06/22/17 Prednisone* (Prednisone*) 20 Mg Tab, 60 MG PO DAILY for 5 Days, TAB Prov:GENO GOEL MD 06/22/17 Ondansetron (Ondansetron Odt) 4 Mg Tab.rapdis, 4 MG PO Q6H PRN for NAUSEA AND/OR VOMITING, #20 TAB Prov:JALEEL CH NP 06/15/17 Ibuprofen* (Motrin*) 600 Mg Tab, 600 MG PO Q6H PRN for PAIN AND OR ELEVATED TEMP, #30 TAB Prov:JALEEL CH NP 06/15/17 Oxycodone HCl/Acetaminophen (Percocet 10-325 mg Tablet) 1 Each Tablet, 1 EACH PO Q6, #20 TAB Prov:JALEEL CH NP 06/15/17 Doxycycline Hyclate* (Doxycycline Hyclate*) 100 Mg Tablet.dr, 100 MG PO BID for 3 Days, TAB Prov:CALVIN GARCIA 06/15/16 Tiotropium [place]* (Spiriva*) 18 Mcg Cap.w.dev, 1 INH INH DAILY for 30 Days, 9 Refills Prov:CALVIN GARCIA S. 06/15/16 Salmeterol Xinaf-Fluticasone* (Advair*) 500/50 Diskus Inhaler, 1 INH INH BID for 30 Days, #60 9 Refills Prov:CALVIN GARCIA S. 06/15/16 [Ipratropium 0.02% (Neb)] 0.5 MG/2.5 ML NEBU No Conflict Check, 0.5 MG HHN Q4HWA RESP THERAPY for 30 Days, 9 Refills Prov:CALVIN GARCIA S. 06/15/16 Albuterol Sulfate* (Albuterol Sulfate* Neb) 0.083%-3 Ml Neb, 2.5 MG NEB Q4 PRN for SHORTNESS OF BREATH, #30 EA 9 Refills Prov:CALVIN GARCIA S. 06/15/16 Ipratropium [place]* (Atrovent HFA*) 12.9 Gm Aer.w.adap, 2 PUFF INHALATION BID, #1 INHALER 9 Refills Prov:CALVIN GARCIA S. 06/15/16 Albuterol Sulfate* (Proair HFA*) 8.5 Gm Hfa.aer.ad, 2 PUFF INH Q4, #1 INHALER 9 Refills Prov:CALVIN GARCIA S. 06/15/16 Acetaminophen* (Tylophen*) 500 Mg Capsule, 1 CAP PO Q6H PRN for PAIN AND OR ELEVATED TEMP, #20 CAP Prov:JALEEL CH NP 06/03/16 Ibuprofen* (Motrin*) 400 Mg Tab, 400 MG PO Q6H PRN for PAIN AND OR ELEVATED TEMP, #30 TAB Prov:JALEEL CH NP 06/03/16 Guaifenesin-Codeine Phosphate* (Guaifenesin* AC Cough Syrup) 473 Ml Liquid, 10 ML PO Q4H PRN for COUGH, #120 ML Prov:JALEEL CH NP 06/03/16 Guaifenesin-Codeine Phosphate* (Guaifenesin* with Codeine Liq) 120 Ml Liquid, 5 ML PO Q4H for COUGH, #60 ML Prov:JALEEL CH NP 06/08/15 Allergies Allergies: Coded Allergies: No Known Allergies (Verified Allergy, Mild, 06/08/16) PMhx/Soc History of Surgery: Yes (, B Tubal Ligation) Anesthesia Reaction: No Hx Neurological Disorder: No Hx Respiratory Disorders: Yes (Asthma,TB) Hx Cardiac Disorders: No Hx Psychiatric Problems: No Hx Miscellaneous Medical Probl: Yes (Nephrolithiasis, Gallstones) Hx Alcohol Use: No Hx Substance Use: No Hx Tobacco Use: No FmHx Family History: No diabetes, No coronary disease Physical Exam Vitals Vital Signs Date Temp Pulse Resp B/P (MAP) Pulse Ox O2 O2 Flow FiO2 Time Delivery Rate 12/27/18 77 16 99 21 17:56 12/27/18 98.4 96 16 148/64 98 15:59 (92) Physical Exam Patient alert, oriented, mild respiratory distress with cough. HEAD: Normocephalic, atraumatic. EYES: PERRLA, EOMI, Sclera and conjunctiva appear normal. NOSE: clear rhinorrhea . EARS: Canals clear, tympanic membranes WNL. MOUTH: normal lips and tongue, no oral lesions. THROAT: Erythema of the oropharynx, no tonsillar exudates. NECK: Supple, No lymphadenopathy. Full ROM without pain or tenderness. HEART: RRR, no rubs, murmurs, clicks or gallops. LUNGS: Bilateral inspiratory and expiratory wheezing to auscultation. ABDOMEN: Soft, non-tender without masses or hepatosplenomegaly. EXTREMITIES: No edema bilaterally. BACK: Full ROM, no deformity, normal back exam NEURO: Cranial nerves grossly intact, no motor or sensory deficit SKIN: No rashes, no petechia Results 24 hrs Current Medications Medications Dose Sig/Radha Start Time Status Last (Trade) Ordered Route PRN Stop Time Admin Dose Reason Admin Albuterol 5 mg ONCE STAT 12/27/18 DC 12/27/18 (Proventil NEB 17:29 12/27/18 17:53 0.083% (Neb)) 17:41 Ipratropium 0.5 mg ONCE STAT 12/27/18 DC 12/27/18 [place] NEB 17:29 12/27/18 17:52 (Atrovent 17:41 0.02% (Neb)) Prednisone 60 mg ONCE STAT 12/27/18 DC 12/27/18 (Prednisone) PO 17:29 12/27/18 17:43 17:41 Procedures/MDM At the time of discharge, vital signs stable, no respiratory distress. Differential diagnosis include but not limited to: Respiratory infection bacterial/viral/fungal. Asthma/COPD, pneumonitis, allergies, GERD. Less likely foreign body aspiration, cardiac related, aspiration pneumonia, malignancy. Physical examination and clinical presentation consistent most likely with acute asthma exacerbation with early superimposed bacterial infection. During the ED course the patient remained stable, received a nebulized treatment and steroids in the ED presenting overall improvement of the symptoms, no new complaints. Clinical impression discussed with the patient who agrees with management. The patient is stable to be treated outpatient and will be discharged home. Some side effects of prescribed medications (headache, rash, nausea, vomiting, diarrhea, drowsiness, habituation, bleeding, hypertension, interactions with other medications) were reviewed. The patient was instructed to follow up with the primary care provider in the next 48h. If symptoms persist, worsen or new symptoms develop, then patient should return to the ED immediately. Disclaimer: Inadvertent spelling and grammatical errors are likely due to EHR/dictation software use and do not reflect on the overall quality of patient care. Also, please note that the electronic time recorded on this note does not necessarily reflect the actual time of the patient encounter. Departure Diagnosis: Primary Impression: Asthma with acute exacerbation Condition: Stable Additional Instructions: Muchas katy por [facility] para hollis servicio. Esperamos que en hollis visita a la olivia de emergencia ohllis problema medico haya sido solucionado y que se sienta mucho mejor. Para estar seguros que hollis mejoria sigue en proceso, le pedimos el favor de hacer wallace jaime de seguimiento medico con hollis doctor primario en los proximos 2-4 [place]. Lleve con usted estos documentos y las medicinas recetadas. Si ivette sintomas empeoran, NO SE ESPERE, por favor regrese a olivia de emergencia I NMEDIATAMENTE. En roderick que usted no tenga un mdico de atencin primaria: Llame al mdico o clnica comunitaria de referencia que aparece abajo mary las horas de consultorio para hacer wallace jaime para que le vean. CLINICAS: [facility] [phone] [facility] [phone] [facility] [phone] [facility] [phone] [facility]. [place] [phone] [facility] [phone] KATHARINE HAQUE MD Dec 27, 2018 17:32
[2018-12-27] MEDS ORDERED: ALBU8.5H8 INH (17:59)
[2018-12-27] MEDS ORDERED: PRED20TA PO (17:59)
[2018-12-27] MEDS ORDERED: FLUT12HF4 IH (17:59)
[2018-12-27 18:37] VITALS: BP 132/57; PULSE 76; RESP 18
== END 2018-12-27 18:39 | disposition home or self-care (01) ==
LOC: FTE 15:54
DX: J45.901 Unspecified asthma with (acute) exacerbation (principal)
CPT/HCPCS: 94664; J7512; Z7502; Z7610